=== PATIENT | male | born 1970 | race Caucasian/White ===

== ENCOUNTER 2016-07-23 13:05 | Emergency (ER) | payer BC ==
[2016-07-23 17:07] LABS: HEMOGLOBIN 13.4 gm/dl (14.0-17.5); RED BLOOD COUNT 4.27 M/UL (4.20-5.50)
[2016-07-23 17:08] LABS: WHITE BLOOD COUNT 2.3 K/UL (4.5-11.0)
[2016-07-23 17:35] LABS: BUN/CREATININE RATIO 22 (0-10)
== END 2016-07-23 18:20 | disposition home or self-care (01) ==
LOC: ER1 13:05
PROVIDERS: Physician Assistant
DX: D69.6 Thrombocytopenia, unspecified (principal); D72.819 Decreased white blood cell count, unspecified; F17.200 Nicotine dependence, unspecified, uncomplicated; Z90.49 Acquired absence of other specified parts of digestive tract; Z79.899 Other long term (current) drug therapy
CPT/HCPCS: 36415; 80053; 81001; 82607; 82746; 82747; 83615; 83921; 85025; 99283

== ENCOUNTER → 2016-07-23 | Outpatient (CLI) | payer BC ==
[2016-07-23 07:38] LABS: BUN/CREATININE RATIO 20 (0-10)
[2016-07-23 11:58] LABS: HEMOGLOBIN 13.8 gm/dl (14.0-17.5); RED BLOOD COUNT 4.49 M/UL (4.20-5.50); WHITE BLOOD COUNT 3.3 K/UL (4.5-11.0)
== END ==
LOC: LAB 06:27
PROVIDERS: Nurse Practitioner
DX: R53.83 Other fatigue (principal); I10 Essential (primary) hypertension; R00.0 Tachycardia, unspecified
CPT/HCPCS: 36415; 80053; 80061; 83704; 84153; 84443; 85025

== ENCOUNTER → 2016-07-24 | Outpatient (CLI) | payer BC ==
[~2016-07-24] VITALS: Ht 177.8 cm; Wt 108.4 kg
== END ==
LOC: OPSV 12:22
DX: D69.6 Thrombocytopenia, unspecified (principal)
CPT/HCPCS: 36415; 85049; 86900; 86901

== ENCOUNTER → 2016-08-16 | Outpatient (CLI) | payer BC ==
[2016-08-16 13:21] LABS: HEMOGLOBIN 14.6 gm/dl (14.0-17.5); RED BLOOD COUNT 4.63 M/UL (4.20-5.50); WHITE BLOOD COUNT 2.6 K/UL (4.5-11.0)
== END ==
LOC: LAB 12:25
PROVIDERS: Internal Medicine Hematology & Oncology
DX: D69.6 Thrombocytopenia, unspecified (principal)
CPT/HCPCS: 36415; 85025

== ENCOUNTER → 2016-09-06 | Outpatient (CLI) | payer BC | LOC: US 09:07 | DX: D69.6 Thrombocytopenia, unspecified (principal); K76.0 Fatty (change of) liver, not elsewhere classified | CPT/HCPCS: 76705 ==

== ENCOUNTER → 2021-12-29 | Outpatient (CLI) | payer BC ==
[2021-12-29 07:05] LABS: BUN/CREATININE RATIO 21 (0-10)
[2021-12-29 07:11] LABS: HEMOGLOBIN 15.6 gm/dl (14.0-17.5); RED BLOOD COUNT 4.83 M/UL (4.20-5.50); WHITE BLOOD COUNT 5.8 K/UL (4.5-11.0)
[2022-01-02 12:51] LABS: CHOLESTEROL, TOTAL 182 mg/dL (100-199); HDL CHOLESTEROL 39 mg/dL (>39); LDL CHOLESTEROL CALC 116 mg/dL (0-99); PROSTATE-SPECIFIC AG 0.4 ng/mL (0.0-4.0); T. CHOL/HDL RATIO 4.7 ratio (0.0-5.0); TRIGLYCERIDES 149 mg/dL (0-149)
== END ==
LOC: LAB 06:15
PROVIDERS: Nurse Practitioner Family
DX: E66.9 Obesity, unspecified (principal); N40.0 Benign prostatic hyperplasia without lower urinary tract symptoms; E53.8 Deficiency of other specified B group vitamins; R79.89 Other specified abnormal findings of blood chemistry
CPT/HCPCS: 36415; 80053; 80061; 82607; 84153; 84439; 84443; 85025